=== PATIENT | female | born 1985 | race Caucasian/White ===

== ENCOUNTER 2018-09-28 09:26 | Day surgery (SDC) | payer OTHER ==
[2018-09-28] MEDS ORDERED: Dicyclomine 20 MG TAB ONE (09:42)
[2018-09-28] MEDS ORDERED: Metoclopramide HCl 10 MG/2 ML VIAL ONE (09:43)
[2018-09-28 10:12] LABS: #Lymphocytes 0.6 thou/uL (1.20-3.40); #Monocytes 0.6 thou/uL (0.11-0.59); #Neutrophils 11.6 thou/uL (1.40-6.50); %Basophils 0.1 % (0.0-1.0); %Eosinophils 0.1 % (0.0-10.0); %Lymphocytes 4.7 % (21.0-51.0); %Monocytes 4.8 % (0.0-10.0); %Neutrophils 90.3 % (42.0-75.0); Hemoglobin 13.1 g/dL (12.0-16.0); Mean Corpuscular HGB CONC 33.8 g/dL (32.0-36.0); Mean Corpuscular Hemoglobin 31.7 pg (27.0-31.0); Mean Corpuscular Volume 93.7 fL (78.0-98.0); Mean Platelet Volume 7.1 fL (7.4-10.4); Platelet Count 241 thou/uL (130-400); RBC Distribution Width 11.3 % (11.5-14.5); Red Blood Cell (RBC) Count 4.13 mill/uL (4.20-5.40); White Blood Cell (WBC) Count 12.9 thou/uL (4.8-10.8)
[2018-09-28 10:16] LABS: BHCG - Serum POSITIVE (NEGATIVE); Pregs Control Background? CLEAR/WHITE (CLR/WHITE); Pregs Control Bar Appear? YES (CONTROL BAR)
[2018-09-28 10:19] LABS: Bilirubin Negative (Negative); Blood, Urine Large (Negative); Clarity CLOUDY (Clear); Glucose, Urine (Dipstick) Negative (Negative); Leukocyte Large (Negative); Nitrite Negative (Negative); Protein, Urine (Dipstick) 30 mg/dL (Neg-Trace); Specific Gravity, Urine 1.019 (1.002-1.036)
[2018-09-28 10:22] LABS: Bacteria/HPF Rare-Few HPF (None Seen); Hyaline Casts/LPF 4-6 HYALINE CAST LPF (0-3 Hyaline); Pathc Cast-AUWi Flag 1.22 (0-2.49); RBC/HPF GREATER THAN 50-TNTC HPF (0-3); Squamous Epithelial 0-3 HPF (0-3)
[2018-09-28 10:33] LABS: ALT (SGPT) 20 U/L (8-55); AST (SGOT) 22 U/L (5-34); Albumin 4.3 g/dL (3.5-5.0); Alkaline Phosphatase 60 U/L (40-150); Anion Gap 12 mmol/L (10-20); BUN (Urea Nitrogen) 12 mg/dL (7.0-18.7); Bilirubin, Total 0.5 mg/dL (0.2-1.2); Calc. Creatinine Clearance 0 mL/min (70-130); Carbon Dioxide 22 mmol/L (22-29); Chloride 106 mmol/L (98-107); Estimated GFR-MDRD Greater than 90; Globulin 2.6 g/dL (2.4-3.5); Glucose 125 mg/dL (70-105); Lipase 19 U/L (8-78); Potassium 3.7 mmol/L (3.5-5.1); Protein, Total 6.9 g/dL (6.0-8.3); Sodium 136 mmol/L (136-145)
[2018-09-28 12:17] LABS: INR-International Normal Ratio 1.1; PTT 26.4 SEC (22.9-36.1); Prothrombin Time 14.7 SEC (12.0-14.7)
[2018-09-28] MEDS ORDERED: Lorazepam 2 MG/ML VIAL ONE (12:48)
--- NOTE | 2018-09-28 12:55 | ULT ---
TRANSVAGINAL PELVIC ULTRASOUND WITH DOPPLER: HISTORY: Positive test. Right lower quadrant pain, Vaginal bleeding. COMPARISON: None. TECHNIQUE: Real-time tan-scale, color Doppler, and spectral analysis was performed with a transabdominal and tr ansvaginal approach. FINDINGS: The uterus measures 9.1 x 4.2 x 4.6 cm. The endometrial thickness is 8 mm. The right ovary measures 3.9 x 2.6 x 2.5 cm, and the left ovary measures 2.9 x 1.9 x 1.6 cm. There is a heterogeneous mass around the right ovary, extending to the uterine fundus, which is gris rning for an ectopic . There is no intrauterine . IMPRESSION: Findings highly suggestive of a right-sided adnexal ectopic . CODE CR (Dr. Mason at 11:45 a.m.) POS: TPC
[2018-09-28] MEDS ORDERED: Bupivacaine HCl 0.5%/Epinephrine 1:200,000/PF 30 ml Vial ONE (14:53)
[2018-09-28] MEDS ORDERED: Fentanyl 100 MCG/2 ML VIAL ONE ×3 (14:58→17:44)
[2018-09-28] MEDS ORDERED: Meperidine HCl/PF 25 MG/ML VIAL ONE (17:38)
[2018-09-28] MEDS ORDERED: Midazolam HCl 2 mg/2 ml Vial ONE ×2 (17:53→18:32)
[2018-09-28] MEDS ORDERED: Glycopyrrolate 0.2 MG/ML 5 ML SYRINGE ONE (18:25)
[2018-09-28] MEDS ORDERED: Succinylcholine Chloride 20 MG/ML 10 ml SYRINGE FS ONE (18:25)
[2018-09-28] MEDS ORDERED: PROPOFOL 200 MG/20 ML VIAL ONE (18:25)
[2018-09-28] MEDS ORDERED: Dexamethasone 20 MG/5 ML VIAL ONE (18:25)
[2018-09-28] MEDS ORDERED: Ondansetron PF 4 MG/2 ML Vial ONE (18:25)
[2018-09-28] MEDS ORDERED: Lidocaine 1% PF 5 ML VIAL ONE (18:25)
[2018-09-28] MEDS ORDERED: Ketorolac Tromethamine 30 MG/ML VIAL ONE (18:25)
[2018-09-28] MEDS ORDERED: HYDROcodone/Acetaminophen 5/325 mg Tablet ONE (19:36)
--- NOTE | 2018-09-28 20:53 | HP ---
CHIEF COMPLAINT: Abdominal pain. HISTORY OF PRESENT ILLNESS: Ms. Mandel is a 33-year-old white G2, P1-0-0-1, with a reported last menstrual period of 09/03/2018, who presents to the ER today complaining of increasing left lower quadrant pain over the last 24 hours. She has also had a small amount of associated vaginal bleeding. PAST OBSTETRICAL HISTORY: Vaginal delivery at term done in [place] 2 years ago. PAST MEDICAL HISTORY: History of genital herpes, last outbreak as a teen. PAST SURGICAL HISTORY: None. CURRENT MEDICATIONS: Multivitamins. ALLERGIES: NO REPORTED ALLERGIES. SHE WAS TOLD SHE MIGHT BE PENICILLIN ALLERGIC A CHILD. SOCIAL HISTORY: She denies tobacco or alcohol use. She was treated for chlamydia at age 17. FAMILY HISTORY: Unremarkable. REVIEW OF SYSTEMS: Positive for abdominal pain and vaginal bleeding. Denies nausea, vomiting, fever, chills, or change in bowel or bladder habits. PHYSICAL EXAMINATION: VITAL SIGNS: Stable and she is afebrile in the emergency room. Her pulse is in the 80s. GENERAL: She appears anxious, but in no acute distress. CHEST: Clear to auscultation. CARDIOVASCULAR: Regular rate and rhythm. ABDOMEN: Nondistended, but tender to deep palpation on both the right and left sides. PELVIC: Deferred. LABORATORY DATA: White count 12.9, hemoglobin 13.1, hematocrit 38.7, and platelet count 241,000. Quantitative beta-hCG is 3367. Pelvic ultrasound is read by Mr. Arriola, but discussed with Dr. Osorio. A 9.1 uterus axial length is seen. Endometrial thickness is 8 mm. Right ovaries and left ovaries are both visualized. There is a heterogenous mass around the right ovary, that extends to the uterine fundus that Dr. Osorio says is approximately 6 cm in size. These findings are most consistent with a right-sided adnexal ectopic . ASSESSMENT: 1. Suspected ectopic . 2. Due to the patient's clinical examination at this time, I do not believe she is a good candidate for methotrexate. At this time, we will proceed to the operating room for diagnostic laparoscopy and attempted treatment of her ectopic laparoscopically. She understands that should this not be able to accomplished, she may require a laparotomy with removal of tube, ovary or other structures. She understands hysterectomy and blood transfusion are unlikely but always possible. The risk of the procedure including anesthesia, bleeding, infection, as well as damage to adjacent organs requiring repair, removal, or transfusion are discussed with her in detail and she wishes to proceed. Her is with her during my assessment. Job ID: [id number] MTDD
--- NOTE | 2018-09-29 02:00 | OP ---
DATE OF PROCEDURE: 09/28/2018 PREOPERATIVE DIAGNOSIS: Suspected ectopic . POSTOPERATIVE DIAGNOSIS: Suspected ectopic . PROCEDURES PERFORMED: 1. Diagnostic laparoscopy. 2. Laparoscopic distal right salpingectomy. ESTIMATED BLOOD LOSS: 200 mL. hemoperitoneum found, minimal intraoperative blood loss.. COMPLICATIONS: None. FINDINGS: 1. Hemoperitoneum as above. 2. Clotted material consistent with ectopic in the posterior cul-de- sac adjacent to right ovary. 3. Ruptured distal right fallopian tube. ANESTHESIA: General endotracheal. PROCEDURE IN DETAIL: After the informed consent was obtained, the patient was taken to the operating room, where good general endotracheal anesthesia was accomplished. The patient was prepped and draped in the usual sterile fashion in the dorsal lithotomy position using the Nirav stirrups. A weighted speculum was inserted into the vagina and the single-tooth tenaculum was used to grasp the cervix. A Hulka tenaculum was then placed through the cervix and used to grasp the anterior lip. The single-tooth tenaculum was removed. The speculum was also removed. Attention was turned to the anterior abdominal wall. A small infraumbilical incision was made and the Veress needle was placed into the peritoneal cavity. She was then insufflated with 3.5 L of carbon dioxide gas. A 5 mm trocar and sleeve were then placed through the infraumbilical incision. A 5 mm camera was then used to visualize the contents of the pelvis. It could be seen at that time that there was a moderate amount of blood in the pelvis. A 5 mm port was then placed in the right lower quadrant and a 10 mm port was placed in the left lower quadrant, both under direct vision. The pelvis was then thoroughly irrigated and it could be seen at that time there was adherent material to the posterior cul-de-sac consistent with ectopic tissue. The right distal fallopian tube was actively bleeding. The ectopic appearing material was then removed from the cul-de-sac and the LigaSure system was then used to perform a partial distal right salpingectomy. All specimens were removed using the endobag via the large port. Good hemostasis was noted throughout. The pelvis was thoroughly irrigated using the suction irrigation device. The operative sight was noted to be hemostatic. All gas was allowed to escape from the abdominal cavity. The large 10 mm port was closed under direct vision using Vicryl suture. The smaller punctures were then closed using a subcuticular stitch of Monocryl. Glue was applied to all areas and all three areas had been infiltrated with 0.5% Marcaine with epinephrine. All instruments were then removed from the vagina. Sponge, lap, and needle counts were correct. The patient tolerated the procedure well and was taken to the recovery room in good condition. Job ID: [id number] MTDD
--- NOTE | 2018-10-01 10:40 | PDOC.EVN ---
Event Note - Event Note Event Note: Chart review: Path returns with + chorionic villi, confirming the dx. of ectopic preganancy. Pt. is a current pt. at [facility] and was instructed to f/u there in 2 weeks at time of her discharge.
== END 2018-09-28 20:30 | disposition home or self-care (01) ==
LOC: ERS 09:26 → ER/OP 14:35
PROVIDERS: ATTEND Obstetrics & Gynecology
PROC: 10T24ZZ Resection of Products of Conception, Ectopic, Percutaneous Endoscopic Approach (ICD-10-PCS; principal; 2018-09-28)
PROC: 0UB54ZZ Excision of Right Fallopian Tube, Percutaneous Endoscopic Approach (ICD-10-PCS; principal; 2018-09-28)
DX: O00.101 Right tubal pregnancy without intrauterine pregnancy (principal); K66.1 Hemoperitoneum; Z79.899 Other long term (current) drug therapy
CPT/HCPCS: 36415; 76856; 80053; 81003; 81015; 83690; 84702; 84703; 85025; 85610; 85730; 86850; 86900; 86901; 87086; 88305; 96374; J0131; J0670; J1100; J1885; J2001; J2060; J2175; J2250; J2405; J2704; J2765; J3010

== ENCOUNTER 2020-08-26 12:39 | Outpatient (CLI) | payer OTHER | END 2020-08-26 12:40 | disposition home or self-care (01) | LOC: EKG 12:39 | PROVIDERS: ATTEND Advanced Practice Midwife | DX: R00.2 Palpitations (principal); I08.1 Rheumatic disorders of both mitral and tricuspid valves | CPT/HCPCS: 93005; 93010; 93306 ==